=== PATIENT | male | born 1955 | race African-American/Black ===

== ENCOUNTER 2019-07-03 13:34 | Inpatient (IN) | payer MEDICARE ==
--- NOTE | 2019-07-03 19:34 | History and Physical Report ---
History of Present Illness Date of examination: 07/03/19 Date of admission: 07/03/19 15:53 Chief complaint: Shortness of breath - 1 week History of present illness: Patient is a 63 year old male who has a history of pneumonia, admitted at [facility] in 10/2016 presented to my office in company of her daughter complaining of progressive shortness of breath for 2 weeks, weight loss, and right lower extremity pain on ambulation. Shortness of breath is worse on slight exertion. Denies any chest pain no orthopnea or paroxysmal nocturnal dyspnea. He is a current smoker. Smokes 3 cigarettes a day. Denies any fever. No chills. Admits to appreciably increased amount of alcohol ingestion. Patient stated that he has been losing weight for the past 2 years. Lost a total of 50 pounds. Denies any night sweats. No hemoptysis. On admission to my office patient was found to be tachycardic with O2 sat on room air of 88%. Had crackles in the left lower lobe. Had mild to moderate respiratory distress. Direct admission was therefore ordered. Past History Past Medical History: heart failure, hypertension Past Surgical History: No surgical history Social history: smoking, alcohol abuse Family history: other (patient's sister has diabetes) Medications and Allergies Allergies Allergy/AdvReac Type Severity Reaction Status Date / Time No Known Allergies Allergy Unverified 07/03/19 21:23 Active Meds: Active Medications Albuterol/Ipratropium (Duoneb *Not For Prn Use*) 1 ampul IH Q6HRT [facility] Enoxaparin Sodium (Lovenox) 40 mg SUB-Q QDAY@2200 [facility] Levofloxacin/Dextrose (Levaquin 750mg/150ml) 750 mg in 150 mls @ 100 mls/hr IV Q24HR [facility]; Protocol Methylprednisolone Sodium Succinate (Solu-Medrol) 40 mg IV Q8HR [facility] Review of systems Constitutional: Well Nourished and Well developed. Head: NC/ AT Eyes: Denies any visual impairments. No discharge from the eyes Nose: Denies any rhinorrhea or epistaxis Throats: Denies any post nasal drainage. Ears: Denies any hearing deficits Cardiovascular system: Denies any chest pain, shortness of breath, orthopnea, paroxysmal nocturnal dyspnea, or palpitation. Respiratory system: Has shortness of breath. difficulty breathing, wheezing, pleuritic chest pain, Gastrointestinal system: Denies any abdominal pain, nausea vomiting, hematemesis or melena. Neurological system: Denies any headache, slurred speech, facial droop, lateralizing weakness Genitalia system: Denies any dysuria, urinary frequency or urgency, urethral discharge Skin: No rashes, hyperpigmented spots. Hematological: Denies any cervical tenderness hemorrhages or petechia. Immunological: Denies any multiple septic spots, Lymphatic: Denies any generalized lymphadenopathy. Endocrine: Denies any polyuria, polydipsia, polyphagia. No heat or cold intolerance. Musculoskeletal system: No joint pain or swelling. Psych: No visual, tactile, auditory or hallucination Exam - Physical Exam Narrative exam: Constitutional: Poorly nourished, in mild to moderate respiratory distress Head: Normocephalic atraumatic Eyes: Pupils are equal round and reactive to light Nose: No enlarged turbinates, no septal deviation. Mouth: Moist mucous membranes. Neck: Supple no thyromegaly. No bruit. No JVD Heart: Regular rate and rhythm, S1-S2 normal. No rubs murmurs or gallop Lungs: Decreased air movement bilaterally with crackles on the left middle and lower lobes. Has inspiratory wheeze. Abdomen: Soft, nontender. Bowel sound are present. Extremities: No dizziness. No dorsalis pedis pulses felt on both lower extremities. No edema, no cyanosis, no clubbing. Neuro: Alert oriented Oriented x3. No focal sensory or motor deficit. Skin: No rashes or hyperpigmented spots Musculoskeletal system: No joint pain or swelling Hematological: No petechia or subcutanous hemorrhages. Immunological: No multiple septic spots on the skin Lymphatic: No generalized lymphadenopathy Psychiatry: Euthymic. Calm. - Constitutional Vitals: Temp Pulse Resp BP Pulse Ox 97.6 F 105 H 22 181/89 99 07/03/19 19:06 07/03/19 19:03 07/03/19 19:03 07/03/19 19:03 07/03/19 19:03 Results - Labs CBC & Chem 7: 07/03/19 19:41 07/03/19 19:41 Assessment and Plan Patient is a 63 year old male who has a history of pneumonia, admitted at [facility] in 10/2016 presented to my office in company of her daughter complaining of progressive shortness of breath for 2 weeks, weight loss, and right lower extremity pain on ambulation. Shortness of breath is worse on slight exertion. Denies any chest pain no orthopnea or paroxysmal nocturnal dyspnea. He is a current smoker. Smokes 3 cigarettes a day. Denies any fever. No chills. Admits to appreciably increased amount of alcohol ingestion. Patient stated that he has been losing weight for the past 2 years. Lost a total of 50 pounds. Denies any night sweats. No hemoptysis. On admission to my office patient was found to be tachycardic with O2 sat on room air of 88%. Had crackles in the left lower lobe. Had mild to moderate respiratory distress. Direct admission was therefore ordered. - COPD exercebation Broanchodilator, supplemental oxygen, iv solumedrol and iv Levaquin - H/o CHF Obtain BNP, CXR, ECHO, iv lasix, BB, ACEI, Statin - Weight loss CT chest abdomen and pelvis - Pain right leg No palpable pulse right leg Arterial doppler - Thrombocytopenia commence Thiamine, folic acid, - Eosinophelia Unknown etiology, likely pulmonary f/ui with CXR and CT chest - DVT PPx with lovenox and GI with pepcid CODE STATUS: Patient is full code. Time spent: 40 minutes.
[2019-07-03 20:01] LABS: Basophils % (Auto) 0.8 % (0.0-1.8); Eosinophils # (Auto) 0.3 K/mm3 (0.0-0.4); Hematocrit 37.7 % (30.3-42.9); Hemoglobin 12.4 gm/dl (10.1-14.3); Lymphocytes # (Auto) 0.7 K/mm3 (1.2-5.4); Lymphocytes % (Auto) 28.8 % (13.4-35.0); Mean Corpuscular HGB Conc 33 % (30-34); Mean Corpuscular Volume 96 fl (79-97); Monocytes # (Auto) 0.3 K/mm3 (0.0-0.8); Monocytes % (Auto) 10.6 % (0.0-7.3); Platelet Count 108 K/mm3 (140-440); Red Blood Count 3.94 M/mm3 (3.65-5.03); Red Cell Distribution Width 12.7 % (13.2-15.2)
[2019-07-03 20:20] LABS: Alanine Aminotransferase 7 units/L (7-56); Albumin 3.8 g/dL (3.9-5); BUN/Creatinine Ratio 24; Blood Urea Nitrogen 17 mg/dL (7-17); Calcium 8.7 mg/dL (8.4-10.2); Hemolysis Index 14
[2019-07-03] MEDS: DUONEB *Not for PRN Use IH SCH (21:55)
[2019-07-03] MEDS: ZESTRIL PO SCH (21:59)
[2019-07-03] MEDS: COREG PO SCH (21:59)
[2019-07-03] MEDS: LOVENOX SUB-Q SCH (22:00)
[2019-07-03] MEDS: SOLU-Medrol IV SCH (22:00)
[2019-07-03] MEDS: LEVAQUIN 750MG/150ML 750 MG/150 ML BAG IV SCH (22:23)
--- NOTE | 2019-07-03 22:37 | XRay Report ---
CHEST 1 VIEW INDICATION / CLINICAL INFORMATION: sob. COMPARISON: None available. FINDINGS: SUPPORT DEVICES: None. HEART / MEDIASTINUM: Atherosclerotic calcifications are noted in the aortic arch. LUNGS / PLEURA: No significant pulmonary or pleural abnormality.. No pneumothorax. ADDITIONAL FINDINGS: No significant additional findings. IMPRESSION: 1. No acute findings. Signer Name: Robin Hollingsworth MD Signed: 07/03/2019 10:33 PM Workstation Name: [id number]
[2019-07-03 22:42] LABS: ABG Base Excess 12.6 mmol/L (-2.0-3.0); ABG HCO3 38.8 mmol/L (20.0-26.0); ABG Methemoglobin 0.5 % (0.0-1.5); ABG Oxygen Saturation 97.3 % (95.0-99.0); ABG PCO2 63.7 mm Hg; ABG PH 7.402 pH Units (7.350-7.450); ABG PO2 99.6 mm Hg (80.0-90.0)
[2019-07-04] MEDS: DUONEB *Not for PRN Use IH SCH ×4 (02:17→22:37)
[2019-07-04] MEDS: SOLU-Medrol IV SCH ×3 (06:09→21:09)
--- NOTE | 2019-07-04 08:17 | Progress Note ---
Assessment and Plan Patient is a 63 year old male who has a history of pneumonia, admitted at [facility] in 10/2016 presented to my office in company of her daughter complaining of progressive shortness of breath for 2 weeks, weight loss, and right lower extremity pain on ambulation. Shortness of breath is worse on slight exertion. Denies any chest pain no orthopnea or paroxysmal nocturnal dyspnea. He is a current smoker. Smokes 3 cigarettes a day. Denies any fever. No chills. Admits to appreciably increased amount of alcohol ingestion. Jessica ent stated that he has been losing weight for the past 2 years. Lost a total of 50 pounds. Denies any night sweats. No hemoptysis. On admission to my office patient was found to be tachycardic with O2 sat on room air of 88%. Had crackles in the left lower lobe. Had mild to moderate respiratory distress. Direct admission was therefore ordered. - COPD exercebation Chest x-ray remarkable for emphysema, cardiomegaly and mild congestion. Discussed with radiologist. Broanchodilator, supplemental oxygen, iv solumedrol and iv Levaquin - H/o CHF Follow-up with Obtain BNP and ECHO, Chest x-ray showed cardiomegaly. iv lasix, BB, ACEI, Statin - Weight loss CT chest abdomen and pelvis - Pain right leg No palpable pulse right leg Arterial doppler - Thrombocytopenia commence Thiamine, folic acid, - Eosinophelia Unknown etiology, likely pulmonary f/ui with CXR and CT chest - DVT PPx with lovenox and GI with pepcid CODE STATUS: Patient is full code. Time spent: 40 minutes. Subjective Date of service: 07/04/19 Principal diagnosis: COPD exacerbation, shortness of breath, hypoxia, PAD. Interval history: Shortness of breath improving Objective - Exam Narrative Exam: Constitutional: Poorly nourished,in mild to moderate respiratory distress Head: Normocephalic atraumatic Eyes: Pupils are equal round and reactive to light Nose: No enlarged turbinates, no septal deviation. Mouth: Moist mucous membranes. Neck: Supple no thyromegaly. No bruit. No JVD Heart: Regular rate and rhythm, S1-S2 normal. No rubs murmurs or gallop Lungs: Decreased air movement bilaterally with crackles on the left middle and lower lobes. Has inspiratory wheeze. Abdomen: Soft, nontender. Bowel sound are present. Extremities: No dizziness. No dorsalis pedis pulses felt on both lower extremities. No edema, no cyanosis, no clubbing. Neuro: Alert oriented Oriented x3. No focal sensory or motor deficit. Skin: No rashes or hyperpigmented spots Musculoskeletal system: No joint pain or swelling Hematological: No petechia or subcutanous hemorrhages. Immunological: No multiple septic spots on the skin Lymphatic: No generalized lymphadenopathy Psychiatry: Euthymic. Calm. - Constitutional Vitals: Vital Signs - 12hr 07/03/19 07/04/19 07/04/19 22:00 02:18 02:19 Temperature 98.8 F Pulse Rate 88 Pulse Rate [ 90 Bilateral Throughout] Respiratory 20 Rate Respiratory 18 Rate [Bilateral Throughout] Blood Pressure 134/74 O2 Sat by Pulse 95 91 Oximetry 07/04/19 07:52 Temperature 97.7 F Pulse Rate 87 Pulse Rate [ Bilateral Throughout] Respiratory 18 Rate Respiratory Rate [Bilateral Throughout] Blood Pressure 141/76 O2 Sat by Pulse 97 Oximetry - Labs CBC & Chem 7: 07/03/19 19:41 07/03/19 19:41 Labs: Abnormal lab results 07/03/19 07/03/19 07/03/19 Range/Units 19:41 19:41 22:00 WBC 2.6 L (4.5-11.0) K/mm3 RDW 12.7 L (13.2-15.2) % Plt Count 108 L (140-440) K/mm3 [place] % (Auto) 10.6 H (0.0-7.3) % Eos % (Auto) 11.0 H (0.0-4.3) % Lymph # 0.7 L (1.2-5.4) K/mm3 Seg Neutrophils # 1.3 L (1.8-7.7) K/mm3 ABG pO2 99.6 H (80.0-90.0) mm Hg ABG HCO3 38.8 H (20.0-26.0) mmol/L ABG Base Excess 12.6 H (-2.0-3.0) mmol/L ABG Hemoglobin 7.0 L (14.0-18.0) gm/dl Chloride 95.5 L (98-107) mmol/L Carbon Dioxide 36 H (22-30) mmol/L Albumin 3.8 L (3.9-5) g/dL
[2019-07-04 08:37] LABS: Basophils % (Auto) 0.6 % (0.0-1.8); Eosinophils # (Auto) 0.1 K/mm3 (0.0-0.4); Eosinophils % (Auto) 5.4 % (0.0-4.3); Hematocrit 36.8 % (35.5-45.6); Hemoglobin 12.2 gm/dl (11.8-15.2); Lymphocytes # (Auto) 0.4 K/mm3 (1.2-5.4); Lymphocytes % (Auto) 16.9 % (13.4-35.0); Mean Corpuscular HGB Conc 33 % (32-34); Mean Corpuscular Volume 96 fl (84-94); Monocytes # (Auto) 0.1 K/mm3 (0.0-0.8); Platelet Count 104 K/mm3 (140-440); Red Blood Count 3.84 M/mm3 (3.65-5.03); Red Cell Distribution Width 12.8 % (13.2-15.2)
[2019-07-04 08:55] LABS: BUN/Creatinine Ratio 23; Blood Urea Nitrogen 18 mg/dL (9-20); Calcium 8.9 mg/dL (8.4-10.2); Hemolysis Index 6
--- NOTE | 2019-07-04 11:52 | Consultation ---
History of Present Illness Consult date: 07/04/19 Requesting physician: CHRIS HAWKINS Consult reason: congestive heart failure History of present illness: The patient is a 63 year old male with a past medical history of HTN, pneumonia and tobacco use. He is previously unknown to our practice. Pt presented to his PCP's (Dr. Hawkins) office yesterday in company of his daughter with c/o progressive shortness of breath for 2 weeks, weight loss, and right lower extremity pain on ambulation. Shortness of breath is worse on slight exertion. Pt denies any chest pain, orthopnea, paroxysmal nocturnal dyspnea, palpitations, n/v, diaphoresis, dizziness or syncope. Admits to appreciably increased amount of alcohol ingestion. Patient stated that he has been losing weight for the past 2 years. Lost a total of 50 pounds. Denies any night sweats. No hemoptysis. On admission PCP's office patient was found to be tachycardic with O2 sat on room air of 88% with crackles in the left lower lobe and mild to moderate respiratory distress and thus pt was directly admitted to [facility] for further eval/management. Pt underwent echo which showed EF 20-25%, LV mildly dilated, mild LVH, impaired relaxation, LA mildly dilated, mod AR and mild MR and thus cardiology has been consulted. On evaluation, pt appears comfortable, no current complaints. Pt's daughter denies any known pt history of cardiac issues, including CAD, AMI or HF. Past History Past Medical History: hypertension Past Surgical History: No surgical history Social history: smoking, alcohol abuse Family history: other (patient's sister has diabetes) Medications and Allergies Allergies Allergy/AdvReac Type Severity Reaction Status Date / Time No Known Allergies Allergy Unverified 07/03/19 21:23 Home Medications Medication Instructions Recorded Confirmed Last Taken Type No Known Home Medications [No 07/04/19 07/04/19 Unknown History Reported Home Medications] Active Meds: Active Medications Albuterol/Ipratropium (Duoneb *Not For Prn Use*) 1 ampul IH Q6HRT [facility] Last Admin: 07/04/19 08:45 Dose: 1 ampul Documented by: Atorvastatin Calcium (Lipitor) 40 mg PO QHS [facility] Last Admin: 07/03/19 21:59 Dose: 40 mg Documented by: Carvedilol (Coreg) 6.25 mg PO BID [facility] Last Admin: 07/03/19 21:59 Dose: 6.25 mg Documented by: Enoxaparin Sodium (Lovenox) 40 mg SUB-Q QDAY@2200 [facility] Last Admin: 07/03/19 22:00 Dose: 40 mg Documented by: Famotidine (Pepcid) 20 mg IV QDAY [facility] Furosemide (Lasix) 40 mg IV QDAY [facility] Levofloxacin/Dextrose (Levaquin 750mg/150ml) 750 mg in 150 mls @ 100 mls/hr IV Q24HR [facility]; Protocol Last Infusion: 07/04/19 03:31 Dose: Infused Documented by: Sodium Chloride (Nacl 0.9% 500 Ml) 500 mls @ 50 mls/hr IV DIRECT [facility] Stop: 07/04/19 21:59 Lisinopril (Zestril) 40 mg PO BID [facility] Last Admin: 07/03/19 21:59 Dose: 40 mg Documented by: Methylprednisolone Sodium Succinate (Solu-Medrol) 40 mg IV Q8HR [facility] Last Admin: 07/04/19 06:09 Dose: 40 mg Documented by: Review of Systems Constitutional: weight loss, no weight gain, no fever, no chills, no sweats Ears, nose, mouth and throat: no ear pain, no nose pain, no sinus pressure, no sinus pain Cardiovascular: shortness of breath, dyspnea on exertion, no chest pain, no orthopnea, no palpitations, no rapid/irregular heart beat, no edema, no syncope, no lightheadedness, no high blood pressure, no leg edema Respiratory: shortness of breath, dyspnea on exertion, no cough, no congestion, no wheezing, no pain on inspiration Gastrointestinal: no abdominal pain, no nausea, no vomiting, no diarrhea, no constipation, no change in bowel habits Genitourinary Male: no dysuria, no hematuria, no flank pain, no discharge, no urinary frequency, no urinary hesitancy Integumentary: no rash, no pruritis, no redness, no sores, no wounds Neurological: no head injury, no paralysis, no weakness, no parathesias, no numbness, no tingling, no seizures, no syncope Psychiatric: no anxiety Endocrine: no cold intolerance, no heat intolerance Hematologic/Lymphatic: no easy bruising, no easy bleeding Allergic/Immunologic: no urticaria, no wheezing Physical Examination Vital Signs Temp 98.1 F 07/03/19 18:06 General appearance: no acute distress HEENT: Positive: PERRL, Normocephaly, Mucus Membranes Moist Neck: Positive: neck supple, trachea midline Cardiac: Positive: Reg Rate and Rhythm, S1/S2 Lungs: Positive: Decreased Breath Sounds Abdomen: Negative: Tender Skin: Negative: Rash, Wound Musculoskeletal: No Pain Extremities: Absent: edema Results 07/04/19 08:00 07/04/19 08:00 Cardiac Enzymes 07/03/19 Range/Units 19:41 AST 21 (5-40) units/L CBC 07/03/19 07/04/19 Range/Units 19:41 08:00 WBC 2.6 L 2.5 L (4.5-11.0) K/mm3 RBC 3.94 3.84 (3.65-5.03) M/mm3 Hgb 12.4 12.2 (10.1-14.3) gm/dl Hct 37.7 36.8 (30.3-42.9) % Plt Count 108 L 104 L (140-440) K/mm3 Lymph # 0.7 L 0.4 L (1.2-5.4) K/mm3 [place] # 0.3 0.1 (0.0-0.8) K/mm3 Eos # 0.3 0.1 (0.0-0.4) K/mm3 Baso # 0.0 0.0 (0.0-0.1) K/mm3 Comprehensive Metabolic Panel 07/03/19 07/04/19 Range/Units 19:41 08:00 Sodium 141 142 (137-145) mmol/L Potassium 3.9 3.9 (3.6-5.0) mmol/L Chloride 95.5 L 95.8 L (98-107) mmol/L Carbon Dioxide 36 H 38 H (22-30) mmol/L BUN 17 18 (7-17) mg/dL Creatinine 0.7 0.8 (0.7-1.2) mg/dL Glucose 76 106 H (65-100) mg/dL Calcium 8.7 8.9 (8.4-10.2) mg/dL AST 21 (5-40) units/L ALT 7 (7-56) units/L Alkaline Phosphatase 36 (35-129) units/L Total Protein 7.6 (6.3-8.2) g/dL Albumin 3.8 L (3.9-5) g/dL - Imaging and Cardiology Echo: report reviewed (EF 20-25%, LV mildly dilated, mild LVH, impaired relaxation, LA mildly dilated, mod AR and mild MR ) EKG: report reviewed, image reviewed EKG interpretations - Telemetry EKG Rhythm: Sinus Rhythm - EKG Sinus rhythms and dysrhythmias: sinus rhythm Chamber hypertrophy or enlargement: left ventricular hypertro Assessment and Plan Agree with present cardiac management. Pt appears to be nearing/at euvolemia. Coronary angiography recommended in setting of newly diagnosed CMP. Indications, potential risks and benefits of LHC reviewed with pt and pt's daughter at bedside and they are agreeable to proceed with LHC in AM. NPO after MN. The patient has been seen in conjunction with Dr. Quin Montoya who agrees with the assessment and plan of care. - Patient Problems (1) Acute HFrEF (heart failure with reduced ejection fraction) Current Visit: Yes Status: Acute (2) Cardiomyopathy Current Visit: Yes Status: Chronic (3) COPD exacerbation Current Visit: Yes Status: Suspected (4) Tobacco use Current Visit: Yes Status: Chronic (5) Alcohol use Current Visit: Yes Status: Chronic (6) Acute pain of right lower extremity Current Visit: Yes Status: Acute
[2019-07-04] MEDS ORDERED: NACL 0.9% 500 ML 500 ML IV SCH (12:00)
--- NOTE | 2019-07-04 12:18 | Vascular Lab Report ---
DUPLEX DOPPLER LOWER EXTREMITY ARTERIAL, BILATERAL INDICATION: Claudication. TECHNIQUE: Arterial duplex examination of both lower extremities performed using B-mode, color flow and spectral Doppler assessment. FINDINGS: RIGHT: Common Femoral Artery: PSV 257 cm/sec. Triphasic waveform. Moderate to severe calcified irregular pl aques are identified. Proximal SFA: PSV 33 cm/sec. Biphasic waveform. Mid SFA: PSV 46 cm/sec. Biphasic waveform. Distal SFA: PSV 42 cm/sec. Triphasic waveform. Popliteal artery: PSV 124 cm/sec. Monophasic waveform. Moderate to severe calcified irregular plaque s are identified. Posterior tibial artery: PSV 26 cm/sec. Monophasic waveform. Anterior tibial artery: PSV 13 cm/sec. Monophasic waveform. LEFT: Common Femoral Artery: PSV 95 cm/sec. Biphasic waveform. Moderate calcified irregular plaques are id entified. Proximal SFA: PSV 65 cm/sec. Biphasic waveform. Mid SFA: PSV 126 cm/sec. Biphasic waveform. Distal SFA: PSV 53 cm/sec. Biphasic waveform. Popliteal artery: PSV 231 cm/sec. Biphasic waveform. Moderate to severe calcified irregular plaques are identified. Posterior tibial artery: PSV 33 cm/sec. Biphasic waveform. Dorsalis Pedis Artery: PSV 10 cm/sec. Monophasic waveform. IMPRESSION: Moderate to severe atherosclerotic disease is identified in both lower extremities which is most pron ounced in the right common femoral artery and left popliteal artery. By velocity ratios, there is less than 50% stenosis in the right common femoral artery, greater than 50% stenosis in the right popliteal artery and greater than 75% stenosis in the left popliteal artery . Doppler Waveform: * Triphasic is normal. * Biphasic is abnormal if clear transition from triphasic signal along vascular tree. * Monophasic is abnormal. Signer Name: Bertram Min Jr, MD Signed: 07/04/2019 12:13 PM Workstation Name: [id number]
[2019-07-04] MEDS: LASIX IV SCH (12:59)
[2019-07-04] MEDS: LEVAQUIN 750MG/150ML 750 MG/150 ML BAG IV SCH (13:00)
[2019-07-04] MEDS: COREG PO SCH ×2 (13:06→21:09)
[2019-07-04] MEDS: ZESTRIL PO SCH ×2 (13:07→21:09)
[2019-07-04] MEDS: PEPCID IV SCH (13:10)
--- NOTE | 2019-07-04 17:02 | Cat Scan Report ---
CT CHEST, ABDOMEN, AND PELVIS WITH IV CONTRAST INDICATION: Shortness of breath. Weight loss. TECHNIQUE: Axial CT images were obtained through the chest, abdomen, and pelvis after 100 mL Omnipaque 300 IV co ntrast. Oral contrast was also administered. All CT scans at this location are performed using CT dos e reduction for ALARA by means of automated exposure control. COMPARISON: One view of the chest from 07/03/2019. FINDINGS: Motion artifact limits evaluation of the abdomen. MEDIASTINUM: No significant abnormality of the thyroid gland. The trachea and main bronchi are patent and normal in caliber. No mass or lymphadenopathy is seen. The heart is mildly to moderately enlarge d without a significant pericardial effusion. THORACIC AORTA and ARTERIES: The aorta is patent with moderate generalized atherosclerosis. The ascen ding thoracic aorta is mildly dilated and measures 4.0 x 3.9 cm. No dissection is seen. The great ves sels are patent and moderately calcified. There is dense multivessel coronary atherosclerosis. LUNGS: Atelectasis/scarring is seen along the left lower lobe. The lungs are otherwise clear. No sign ificant pleural effusion or pneumothorax. LIVER: No significant abnormality. BILIARY:No significant abnormality. PANCREAS: No significant abnormality. SPLEEN: No significant abnormality. ADRENALS: No significant abnormality. KIDNEYS AND URETERS:No significant abnormality. GI TRACT:No significant abnormality of the stomach, small bowel or colon. Unremarkable appendix. PERITONEUM: No free fluid. No free air. No fluid collection. LYMPH NODES: No significant adenopathy. ABDOMINAL AORTA and ARTERIES: Severe generalized atherosclerosis is noted. An infrarenal abdominal ao rtic aneurysm measures 4.8 x 4.3 cm in axial dimensions on image 28 of series 7 with a length of 6 cm . No associated acute complication is identified. No dissection is seen. URINARY BLADDER: No significant abnormality. REPRODUCTIVE ORGANS: No significant abnormality. ADDITIONAL FINDINGS: None. SKELETAL SYSTEM: There is osteopenia with degenerative changes throughout the spine. No acute abnorma lity is seen. IMPRESSION: 1. No acute abnormality of the abdomen or pelvis. 2. Aneurysms of the thoracic and abdominal aorta as above without associated acute complications. 3. Additional findings as above. Signer Name: Fred Platt MD Signed: 07/04/2019 4:57 PM Workstation Name: [id number]
[2019-07-04] MEDS ORDERED: ATIVAN IV PRN (19:06)
[2019-07-04] MEDS: LOVENOX SUB-Q SCH (21:09)
[2019-07-05] MEDS: DUONEB *Not for PRN Use IH SCH ×4 (02:27→21:02)
[2019-07-05 04:09] LABS: Basophils % (Auto) 0.1 % (0.0-1.8); Eosinophils % (Auto) 0.1 % (0.0-4.3); Hematocrit 40.7 % (35.5-45.6); Hemoglobin 13.6 gm/dl (11.8-15.2); Lymphocytes # (Auto) 0.4 K/mm3 (1.2-5.4); Mean Corpuscular HGB Conc 33 % (32-34); Mean Corpuscular Volume 96 fl (84-94); Monocytes # (Auto) 0.1 K/mm3 (0.0-0.8); Monocytes % (Auto) 5.7 % (0.0-7.3); Platelet Count 130 K/mm3 (140-440); Red Blood Count 4.24 M/mm3 (3.65-5.03); Red Cell Distribution Width 13.1 % (13.2-15.2)
[2019-07-05 04:21] LABS: INR 0.98 (0.87-1.13)
[2019-07-05 04:26] LABS: Alanine Aminotransferase 9 units/L (7-56); Albumin 4.3 g/dL (3.9-5); BUN/Creatinine Ratio 20; Blood Urea Nitrogen 24 mg/dL (9-20); Calcium 9.6 mg/dL (8.4-10.2); Hemolysis Index 11
[2019-07-05] MEDS: SOLU-Medrol IV SCH ×3 (05:49→21:55)
[2019-07-05] MEDS ORDERED: NACL 0.9% 500 ML 500 ML ONE (07:12)
[2019-07-05] MEDS ORDERED: ASPIRIN ONE (07:13)
[2019-07-05 07:36] LABS: INR 0.93 (0.87-1.13)
[2019-07-05 07:37] LABS: Partial Thromboplastin Time 31.4 Sec. (24.2-36.6)
[2019-07-05] MEDS: ASPIRIN PO SCH ×2 (07:47→10:56)
--- NOTE | 2019-07-05 09:43 | Progress Note ---
Assessment and Plan Patient is a 63 year old male who has a history of pneumonia, admitted at [facility] in 10/2016 presented to my office in company of her daughter complaining of progressive shortness of breath for 2 weeks, weight loss, and right lower extremity pain on ambulation. Shortness of breath is worse on slight exertion. Denies any chest pain no orthopnea or paroxysmal nocturnal dyspnea. He is a current smoker. Smokes 3 cigarettes a day. Denies any fever. No chills. Admits to appreciably increased amount of alcohol ingestion. Jessica ent stated that he has been losing weight for the past 2 years. Lost a total of 50 pounds. Denies any night sweats. No hemoptysis. On admission to my office patient was found to be tachycardic with O2 sat on room air of 88%. Had crackles in the left lower lobe. Had mild to moderate respiratory distress. Direct admission was therefore ordered. - Acute on chronic combined systolic and diastolic heart failure LVEF 20-25% BNP 3787 Chest x-ray showed cardiomegaly. Conitnue with iv lasix, BB, ACEI, Statin - Acute metabolic encephalopahty Likely ETOH with drawal Get ETOH level Likely ETOH withdrawal commence CIWA protocol with ativan - COPD exercebation with hypercapnea Chest x-ray remarkable for emphysema, cardiomegaly and mild congestion. Continue with Broanchodilator, supplemental oxygen, iv solumedrol and iv Levaquin Brovena Pulm. consult - Ascending Aorta aneurysm 4x3.9 cm Vascular surgical consult - PAD with no palpable DP pulse zhen and h/o Claudication Arterial doppler showed sever occlusive disease especially left Pop art. Vascular surgical consult obtained - Weight loss CT chest abdomen and pelvis - Thrombocytopenia - imporving commence Thiamine, folic acid, - Eosinophelia Unknown etiology, likely pulmonary f/u with CXR and CT chest - DVT PPx with lovenox and GI with pepcid CODE STATUS: Patient is full code. Time spent: 40 minutes. Subjective Date of service: 07/05/19 Principal diagnosis: COPD exacerbation, shortness of breath, hypoxia, PAD. Interval history: Very confused. Said to have attemptyed leaving the hospital yesterday Objective - Exam Narrative Exam: Constitutional: Poorly nourished, Very confused and agitated Head: Normocephalic atraumatic Eyes: Pupils are equal round and reactive to light Nose: No enlarged turbinates, no septal deviation. Mouth: Moist mucous membranes. Neck: Supple no thyromegaly. No bruit. No JVD Heart: Regular rate and rhythm, S1-S2 normal. No rubs murmurs or gallop Lungs: Decreased air movement bilaterally with crackles on the left middle and lower lobes. Has inspiratory wheeze. Abdomen: Soft, nontender. Bowel sound are present. Extremities: No dizziness. No dorsalis pedis pulses felt on both lower extremities. No edema, no cyanosis, no clubbing. Neuro: Alert oriented Oriented x3. No focal sensory or motor deficit. Skin: No rashes or hyperpigmented spots Musculoskeletal system: No joint pain or swelling Hematological: No petechia or subcutanous hemorrhages. Immunological: No multiple septic spots on the skin Lymphatic: No generalized lymphadenopathy Psychiatry: Confused and agitated - Constitutional Vitals: Vital Signs - 12hr 07/04/19 07/04/19 07/05/19 22:00 22:41 02:50 Temperature 98.0 F Pulse Rate 104 H Pulse Rate [ 93 H Bilateral Throughout] Pulse Rate [ 98 H Right Brachial] Respiratory 18 18 Rate Respiratory 18 Rate [Bilateral Throughout] Blood Pressure 145/85 O2 Sat by Pulse 98 100 Oximetry - Labs CBC & Chem 7: 07/05/19 03:23 07/05/19 03:23 Labs: Abnormal lab results 07/05/19 07/05/19 07/05/19 Range/Units 01:51 03:23 03:23 WBC 2.5 L (4.5-11.0) K/mm3 MCV 96 H (84-94) fl RDW 13.1 L (13.2-15.2) % Plt Count 130 L (140-440) K/mm3 Lymph # 0.4 L (1.2-5.4) K/mm3 Seg Neutrophils % 79.1 H (40.0-70.0) % Chloride 96.1 L (98-107) mmol/L Carbon Dioxide 36 H (22-30) mmol/L BUN 24 H (9-20) mg/dL Glucose 138 H (75-100) mg/dL POC Glucose 143 H (70-105) Total Protein 8.5 H (6.3-8.2) g/dL 07/05/19 Range/Units 09:24 WBC (4.5-11.0) K/mm3 MCV (84-94) fl RDW (13.2-15.2) % Plt Count (140-440) K/mm3 Lymph # (1.2-5.4) K/mm3 Seg Neutrophils % (40.0-70.0) % Chloride (98-107) mmol/L Carbon Dioxide (22-30) mmol/L BUN (9-20) mg/dL Glucose (75-100) mg/dL POC Glucose 126 H (70-105) Total Protein (6.3-8.2) g/dL
--- NOTE | 2019-07-05 10:00 | Progress Note ---
Assessment and Plan Pt was brought down for [facility], noted to have altered mental status, confused. Will cancel LHC at this time and recommend neurology consultation per primary. D/w Dr. Cohen. Will tentatively plan for C tomorrow pending AMS is improved. NPO after MN. Chest CT reviewed - pt with aneurysms of the thoracic and abdominal aorta. BLE arterial duplex noted - pt with mod to severe disease in BLE. Vascular team has been consulted. Agree with present cardiac management. Pt appears to be nearing/at euvolemia. The patient has been seen in conjunction with Dr. Quin Montoya who agrees with the assessment and plan of care. - Patient Problems (1) Acute HFrEF (heart failure with reduced ejection fraction) Current Visit: Yes Status: Acute (2) Cardiomyopathy Current Visit: Yes Status: Chronic (3) COPD exacerbation Current Visit: Yes Status: Suspected (4) Tobacco use Current Visit: Yes Status: Chronic (5) Alcohol use Current Visit: Yes Status: Chronic (6) Acute pain of right lower extremity Current Visit: Yes Status: Acute Subjective Date of service: 07/05/19 Principal diagnosis: COPD exacerbation, shortness of breath, hypoxia, PAD. Interval history: pt was brought down for [facility], noted to have altered mental status, confused. daughter at bedside. Objective Last Vital Signs Temp 98.0 F 07/05/19 02:50 Pulse 104 H 07/05/19 02:50 Resp 18 07/05/19 02:50 BP 145/85 07/05/19 02:50 Pulse Ox 100 07/05/19 02:50 - Physical Examination General: Other (confused) HEENT: Positive: PERRL, Normocephaly, Mucus Membranes Moist Neck: Positive: neck supple, trachea midline Cardiac: Positive: Regular Rhythm, S1/S2 Lungs: Positive: Decreased Breath Sounds Neuro: Positive: Other (confused) Abdomen: Negative: Tender Skin: Negative: Rash, Wound Musculoskeletal: No Pain Extremities: Absent: edema - Labs and Meds Cardiac Enzymes 07/05/19 Range/Units 03:23 AST 23 (5-40) units/L Coagulation 07/05/19 07/05/19 Range/Units 03:23 07:09 PT 12.7 12.2 (12.2-14.9) Sec. INR 0.98 0.93 (0.87-1.13) APTT 31.4 (24.2-36.6) Sec. CBC 07/05/19 Range/Units 03:23 WBC 2.5 L (4.5-11.0) K/mm3 RBC 4.24 (3.65-5.03) M/mm3 Hgb 13.6 (11.8-15.2) gm/dl Hct 40.7 (35.5-45.6) % Plt Count 130 L (140-440) K/mm3 Lymph # 0.4 L (1.2-5.4) K/mm3 Floyd # 0.1 (0.0-0.8) K/mm3 Eos # 0.0 (0.0-0.4) K/mm3 Baso # 0.0 (0.0-0.1) K/mm3 Comprehensive Metabolic Panel 07/05/19 Range/Units 03:23 Sodium 142 (137-145) mmol/L Potassium 4.5 (3.6-5.0) mmol/L Chloride 96.1 L (98-107) mmol/L Carbon Dioxide 36 H (22-30) mmol/L BUN 24 H (9-20) mg/dL Creatinine 1.2 (0.8-1.5) mg/dL Glucose 138 H (75-100) mg/dL Calcium 9.6 (8.4-10.2) mg/dL AST 23 (5-40) units/L ALT 9 (7-56) units/L Alkaline Phosphatase 36 (35-129) units/L Total Protein 8.5 H (6.3-8.2) g/dL Albumin 4.3 (3.9-5) g/dL - Imaging and Cardiology EKG: report reviewed, image reviewed Echo: report reviewed (EF 20-25%, LV mildly dilated, mild LVH, impaired relaxation, LA mildly dilated, mod AR and mild MR ) - Telemetry EKG Rhythm: Sinus Rhythm - EKG Sinus rhythms and dysrhythmias: sinus rhythm Chamber hypertrophy or enlargement: left ventricular hypertro
[2019-07-05] MEDS: LEVAQUIN 750MG/150ML 750 MG/150 ML BAG IV SCH (10:54)
[2019-07-05] MEDS: LASIX IV SCH (10:55)
[2019-07-05] MEDS: ZESTRIL PO SCH ×2 (10:56→21:54)
[2019-07-05] MEDS: COREG PO SCH ×2 (10:56→21:54)
[2019-07-05] MEDS: PEPCID IV SCH (10:56)
--- NOTE | 2019-07-05 12:03 | Consultation ---
History of Present Illness - Reason for Consult Consult date: 07/05/19 AAA and PAD - History of Present Illness HPI: 63yo male with hx of CHF and HTN currently hospitalized with complaints of worsening SOB on exertion and right leg pain with ambulation. The patient's right leg pain has worsened over the past 2-3 months. The patient has also noticed approx. 50lb weight loss over the past 2 years for poor appetite. The patient's leg pain resolves with rest and denies rest pain. Patient with incidental finding of approx 4.8cm AAA seen on CT scan. Patient history mainly obtained from his daughters due to falling in and out of sleep. Patient has smoked < 1/2ppd of cigarettes for over 30 years and drinks frequently. PE: arousable, NAD emaciated RRR non-labored respirations abd soft, nt, nd, palpable pulsatile mass 1+ femoral pulses bilat both feet warm with no lesions Vitals reviewed arterial duplex CT chest/abd/pelvis reviewed Echo reviewed EF 20-25% Plan: patient with 4.8cm Infra-renal AAA and worsening bilateral lower extremity claudication patient with significant co-morbidities, including likely CAD and severe malnutrition patient scheduled to undergo LHC by Cardiology once AMS improves will obtain ABIs with exercise if possible and CTA of the abd/pelvis with runoff no immediate need for intervention at this time will continue to follow Past History Past Medical History: hypertension Past Surgical History: No surgical history Social history: smoking, alcohol abuse Family history: other (patient's sister has diabetes) Medications and Allergies Allergies Allergy/AdvReac Type Severity Reaction Status Date / Time No Known Allergies Allergy Unverified 07/03/19 21:23 Home Medications Medication Instructions Recorded Confirmed Last Taken Type No Known Home Medications [No 07/04/19 07/04/19 Unknown History Reported Home Medications] Active Meds: Active Medications Albuterol/Ipratropium (Duoneb *Not For Prn Use*) 1 ampul IH Q6HRT [facility] Last Admin: 07/05/19 10:32 Dose: 1 ampul Documented by: Aspirin (Aspirin) 325 mg PO QDAY [facility] Last Admin: 07/05/19 10:56 Dose: Not Given Documented by: Atorvastatin Calcium (Lipitor) 40 mg PO QHS [facility] Last Admin: 07/04/19 21:09 Dose: 40 mg Documented by: Carvedilol (Coreg) 6.25 mg PO BID [facility] Last Admin: 07/05/19 10:56 Dose: 6.25 mg Documented by: Enoxaparin Sodium (Lovenox) 40 mg SUB-Q QDAY@2200 [facility] Last Admin: 07/04/19 21:09 Dose: 40 mg Documented by: Famotidine (Pepcid) 20 mg IV QDAY [facility] Last Admin: 07/05/19 10:56 Dose: 20 mg Documented by: Furosemide (Lasix) 40 mg IV QDAY [facility] Last Admin: 07/05/19 10:55 Dose: 40 mg Documented by: Levofloxacin/Dextrose (Levaquin 750mg/150ml) 750 mg in 150 mls @ 100 mls/hr IV Q24HR [facility]; Protocol Last Admin: 07/05/19 10:54 Dose: 100 mls/hr Documented by: Lisinopril (Zestril) 40 mg PO BID [facility] Last Admin: 07/05/19 10:56 Dose: 40 mg Documented by: Lorazepam (Ativan) 1 mg IV Q12H PRN PRN Reason: Agitation Last Admin: 07/05/19 00:55 Dose: 1 mg Documented by: Methylprednisolone Sodium Succinate (Solu-Medrol) 40 mg IV Q8HR [facility] Last Admin: 07/05/19 05:49 Dose: 40 mg Documented by: Exam - Constitutional Vitals: Temp Pulse Resp BP Pulse Ox 98.0 F 98 H 16 145/85 95 07/05/19 02:50 07/05/19 10:25 07/05/19 10:25 07/05/19 02:50 07/05/19 10:30 Results - Labs CBC & Chem 7: 07/05/19 03:23 07/05/19 03:23 Labs: Abnormal lab results 07/05/19 07/05/19 07/05/19 Range/Units 01:51 03:23 03:23 WBC 2.5 L (4.5-11.0) K/mm3 MCV 96 H (84-94) fl RDW 13.1 L (13.2-15.2) % Plt Count 130 L (140-440) K/mm3 Lymph # 0.4 L (1.2-5.4) K/mm3 Seg Neutrophils % 79.1 H (40.0-70.0) % Chloride 96.1 L (98-107) mmol/L Carbon Dioxide 36 H (22-30) mmol/L BUN 24 H (9-20) mg/dL Glucose 138 H (75-100) mg/dL POC Glucose 143 H (70-105) Magnesium (1.7-2.3) mg/dL Total Protein 8.5 H (6.3-8.2) g/dL 07/05/19 07/05/19 Range/Units 04:07 09:24 WBC (4.5-11.0) K/mm3 MCV (84-94) fl RDW (13.2-15.2) % Plt Count (140-440) K/mm3 Lymph # (1.2-5.4) K/mm3 Seg Neutrophils % (40.0-70.0) % Chloride (98-107) mmol/L Carbon Dioxide (22-30) mmol/L BUN (9-20) mg/dL Glucose (75-100) mg/dL POC Glucose 126 H (70-105) Magnesium 1.60 L (1.7-2.3) mg/dL Total Protein (6.3-8.2) g/dL
[2019-07-05] MEDS ORDERED: ATIVAN IV PRN ×3 (13:49)
--- NOTE | 2019-07-05 17:16 | Cat Scan Report ---
CTA ABDOMEN, PELVIS, AND LOWER EXTREMITIES INDICATION: AAA with lower extremity arterial insufficiency. TECHNIQUE: Axial CT images were obtained through the abdomen, pelvis and lower extremities after injection of 10 0 mL Omnipaque 350 IV contrast. 3 plane MIP reconstructions were produced. All CT scans at this [facility] are performed using CT dose reduction for ALARA by means of automated exposure control. COMPARISON: CT abdomen and pelvis with contrast from 07/04/2019. Bilateral lower extremity arterial Doppler from . FINDINGS: CTA ABDOMEN: Abdominal Aorta: Patent with diffuse calcified and noncalcified plaques. The recently described infra renal abdominal aortic aneurysm is unchanged in size and appearance. No dissection or other acute abn ormality is seen. Celiac Artery: No significant abnormality. Superior Mesenteric Artery: Moderate nonobstructive atherosclerosis is noted proximally along the SMA , which is patent and otherwise unremarkable. Right Renal Artery: There is mild to moderate nonobstructive atherosclerosis at the origin of a paten t right renal artery. Left Renal Artery: The left renal artery is patent with moderate nonobstructive atherosclerosis at th e origin. The left renal vein is preaortic. Inferior Mesenteric Artery: No significant abnormality. CTA PELVIS: RIGHT: - Common Iliac Artery: Patent with diffuse nonobstructive atherosclerosis. - Internal Iliac Artery: Patent with mild generalized nonobstructive atherosclerosis. - External Iliac Artery: No significant abnormality. LEFT: - Common Iliac Artery: Patent with diffuse nonobstructive atherosclerosis. - Internal Iliac Artery: Patent with mild generalized nonobstructive atherosclerosis. - External Iliac Artery: No significant abnormality. CTA LOWER EXTREMITIES: RIGHT LOWER EXTREMITY: - Common Femoral Artery: Patent with dense nonobstructive atherosclerosis resulting in 60-70% stenosi s by diameter. - Superficial Femoral Artery: Patent with moderate generalized nonobstructive atherosclerosis. - Profunda Femoral Artery: No significant abnormality. - Popliteal Artery: Patent with near total occlusion proximally due to calcified plaques. Moderate no nobstructive atherosclerosis is seen distally. - Anterior Tibial Artery: Patent at its origin with moderate to severe stenosis proximally and subseq uent occlusion without distal reconstitution of flow. A patent dorsalis pedis artery is not visualize d. - Tibioperoneal Trunk: Patent with moderate nonobstructive atherosclerosis. - Posterior Tibial Artery: No significant abnormality. - Peroneal Artery: Patent with mild nonobstructive atherosclerosis proximally. - Ankle runoff: 2 vessel. LEFT LOWER EXTREMITY: - Common Femoral Artery: Patent with diffuse atherosclerosis resulting in 50-60% stenosis by diameter . - Superficial Femoral Artery: Patent with moderate atherosclerosis along the distal half of the vesse l, resulting in mild to moderate obstruction. - Profunda Femoral Artery: No significant abnormality. - Popliteal Artery: Patent with mild nonobstructive atherosclerosis. - Anterior Tibial Artery: Occluded at its origin without distal reconstitution of flow. A patent dors jacob pedis artery is not seen. - Tibioperoneal Trunk: Patent with mild nonobstructive atherosclerosis. - Posterior Tibial Artery: No significant abnormality. - Peroneal Artery: Patent at its origin with mild generalized atherosclerosis and diminutive caliber. The vessel appears patent to the foot. - Ankle runoff: 2 vessel. NONTARGET STRUCTURES: LOWER CHEST: There is a trace left pleural effusion with associated atelectasis. ABDOMEN/PELVIS: No significant abnormality. LOWER EXTREMITIES:No significant abnormality. SKELETAL: No acute abnormality. Osteopenia/osteoporosis is seen with degenerative changes of the spin e and pelvis. ADDITIONAL FINDINGS: None. IMPRESSION: 1. Stable infrarenal abdominal aortic aneurysm without an acute complication. 2. Near total occlusion of the proximal right popliteal artery, occlusion of the right anterior tibia l artery. Two-vessel runoff to the right foot. 3. Mild to moderate obstruction of the distal left SFA with occlusion of the left anterior tibial art aisha. Two-vessel runoff to the left foot. 4. Additional findings as above. Signer Name: Fred Platt MD Signed: 07/05/2019 5:12 PM Workstation Name: [id number]
[2019-07-05] MEDS: LOVENOX SUB-Q SCH (21:54)
[2019-07-06] MEDS: DUONEB *Not for PRN Use IH SCH ×4 (04:58→20:45)
[2019-07-06] MEDS: ASPIRIN PO SCH (05:11)
[2019-07-06] MEDS: COREG PO SCH ×3 (05:11→21:37)
[2019-07-06] MEDS: SOLU-Medrol IV SCH ×3 (05:11→21:36)
[2019-07-06] MEDS: ZESTRIL PO SCH ×3 (05:12→21:53)
[2019-07-06] MEDS: NACL 0.9% 1000 ML 1,000 ML IV SCH (05:30)
[2019-07-06 06:18] LABS: Basophils % (Auto) 0.2 % (0.0-1.8); Eosinophils % (Auto) 0.1 % (0.0-4.3); Hematocrit 38.9 % (35.5-45.6); Lymphocytes # (Auto) 0.6 K/mm3 (1.2-5.4); Lymphocytes % (Auto) 10.2 % (13.4-35.0); Mean Corpuscular HGB Conc 33 % (32-34); Mean Corpuscular Volume 95 fl (84-94); Monocytes # (Auto) 0.3 K/mm3 (0.0-0.8); Monocytes % (Auto) 4.7 % (0.0-7.3); Platelet Count 142 K/mm3 (140-440); Red Cell Distribution Width 12.9 % (13.2-15.2)
[2019-07-06 06:26] LABS: INR 0.91 (0.87-1.13)
[2019-07-06 06:53] LABS: Albumin 3.8 g/dL (3.9-5); Calcium 9.2 mg/dL (8.4-10.2)
[2019-07-06] MEDS ORDERED: NACL 0.9% 500 ML 500 ML ONE (08:12)
--- NOTE | 2019-07-06 08:34 | Progress Note ---
Assessment and Plan Patient is a 63 year old male who has a history of pneumonia, admitted at [facility] in 10/2016 presented to my office in company of her daughter complaining of progressive shortness of breath for 2 weeks, weight loss, and right lower extremity pain on ambulation. Shortness of breath is worse on slight exertion. Denies any chest pain no orthopnea or paroxysmal nocturnal dyspnea. He is a current smoker. Smokes 3 cigarettes a day. Denies any fever. No chills. Admits to appreciably increased amount of alcohol ingestion. Jessica ent stated that he has been losing weight for the past 2 years. Lost a total of 50 pounds. Denies any night sweats. No hemoptysis. On admission to my office patient was found to be tachycardic with O2 sat on room air of 88%. Had crackles in the left lower lobe. Had mild to moderate respiratory distress. Direct admission was therefore ordered. CTA of abdomen 1. No acute abnormality of the abdomen or pelvis. 2. Aneurysms of the thoracic and abdominal aorta as above without associated acute complications. - Acute on chronic combined systolic and diastolic heart failure LVEF 20-25% BNP 3787 Chest x-ray showed cardiomegaly. Conitnue with iv lasix, BB, ACEI, Statin - Acute metabolic encephalopahty Likely ETOH withdrawal CIWA protocol - Likely ETOH withdrawal commence CIWA protocol with ativan - COPD exercebation with hypercapnea Chest x-ray remarkable for emphysema, cardiomegaly and mild congestion. Continue with Broanchodilator, supplemental oxygen, iv solumedrol and iv Levaquin Brovena Pulm. consult - Ascending Aorta aneurysm 4x3.9 cm Vascular surgical consult - PAD with no palpable DP pulse zhen and h/o Claudication Arterial doppler showed sever occlusive disease especially left Pop art. Vascular surgical consult obtained - Weight loss CT chest abdomen and pelvis - Thrombocytopenia - imporving commence Thiamine, folic acid, - Eosinophelia Unknown etiology, likely pulmonary f/u with CXR and CT chest - DVT PPx with lovenox and GI with pepcid CODE STATUS: Patient is full code. Time spent: 40 minutes. Subjective Date of service: 07/06/19 Principal diagnosis: COPD exacerbation, shortness of breath, hypoxia, PAD. Interval history: Very confused. Said to have attempted leaving the hospital yesterday. Sedated and asleep Objective - Exam Narrative Exam: Constitutional: Poorly nourished, Very confused and agitated Head: Normocephalic atraumatic Eyes: Pupils are equal round and reactive to light Nose: No enlarged turbinates, no septal deviation. Mouth: Moist mucous membranes. Neck: Supple no thyromegaly. No bruit. No JVD Heart: Regular rate and rhythm, S1-S2 normal. No rubs murmurs or gallop Lungs: Decreased air movement bilaterally with crackles on the left middle and lower lobes. Has inspiratory wheeze. Abdomen: Soft, nontender. Bowel sound are present. Extremities: No dizziness. No dorsalis pedis pulses felt on both lower extremities. No edema, no cyanosis, no clubbing. Neuro: Alert oriented Oriented x3. No focal sensory or motor deficit. Skin: No rashes or hyperpigmented spots Musculoskeletal system: No joint pain or swelling Hematological: No petechia or subcutanous hemorrhages. Immunological: No multiple septic spots on the skin Lymphatic: No generalized lymphadenopathy Psychiatry: Confused and agitated - Constitutional Vitals: Vital Signs - 12hr 07/05/19 07/05/19 07/05/19 21:02 21:10 21:54 Temperature Pulse Rate 104 H Pulse Rate [ 107 H Bilateral Throughout] Respiratory Rate Respiratory 20 Rate [Bilateral Throughout] Blood Pressure 106/55 O2 Sat by Pulse 97 Oximetry 07/06/19 07/06/19 07/06/19 01:57 05:11 05:12 Temperature 97.6 F Pulse Rate 99 H 99 H 99 H Pulse Rate [ Bilateral Throughout] Respiratory 16 Rate Respiratory Rate [Bilateral Throughout] Blood Pressure 117/67 117/67 117/67 O2 Sat by Pulse 92 Oximetry 07/06/19 07/06/19 06:55 07:43 Temperature 97.8 F Pulse Rate 88 90 Pulse Rate [ Bilateral Throughout] Respiratory 18 Rate Respiratory Rate [Bilateral Throughout] Blood Pressure 104/48 O2 Sat by Pulse 99 Oximetry - Labs CBC & Chem 7: 07/06/19 05:27 07/06/19 05:27 Labs: Abnormal lab results 07/05/19 07/05/19 07/05/19 Range/Units 04:07 09:24 11:48 MCV (84-94) fl RDW (13.2-15.2) % Lymph % (Auto) (13.4-35.0) % Lymph # (1.2-5.4) K/mm3 Seg Neutrophils % (40.0-70.0) % PT (12.2-14.9) Sec. Chloride (98-107) mmol/L Carbon Dioxide (22-30) mmol/L BUN (9-20) mg/dL Glucose (75-100) mg/dL POC Glucose 126 H 138 H (70-105) Magnesium 1.60 L (1.7-2.3) mg/dL Alkaline Phosphatase (35-129) units/L Albumin (3.9-5) g/dL 07/05/19 07/06/19 07/06/19 Range/Units 16:37 05:27 05:27 MCV 95 H (84-94) fl RDW 12.9 L (13.2-15.2) % Lymph % (Auto) 10.2 L (13.4-35.0) % Lymph # 0.6 L (1.2-5.4) K/mm3 Seg Neutrophils % 84.8 H (40.0-70.0) % PT (12.2-14.9) Sec. Chloride 94.0 L (98-107) mmol/L Carbon Dioxide 33 H (22-30) mmol/L BUN 31 H (9-20) mg/dL Glucose 130 H (75-100) mg/dL POC Glucose 137 H (70-105) Magnesium (1.7-2.3) mg/dL Alkaline Phosphatase 28 L (35-129) units/L Albumin 3.8 L (3.9-5) g/dL 07/06/19 07/06/19 Range/Units 05:27 05:27 MCV (84-94) fl RDW (13.2-15.2) % Lymph % (Auto) (13.4-35.0) % Lymph # (1.2-5.4) K/mm3 Seg Neutrophils % (40.0-70.0) % PT 12.0 L (12.2-14.9) Sec. Chloride (98-107) mmol/L Carbon Dioxide (22-30) mmol/L BUN (9-20) mg/dL Glucose (75-100) mg/dL POC Glucose 126 H (70-105) Magnesium (1.7-2.3) mg/dL Alkaline Phosphatase (35-129) units/L Albumin (3.9-5) g/dL
[2019-07-06] MEDS ORDERED: VERSED ONE (08:51)
[2019-07-06] MEDS ORDERED: SUBLIMAZE ONE (08:52)
[2019-07-06] MEDS ORDERED: HEPARIN 10,000 UNITS/10 ML ONE (08:52)
[2019-07-06] MEDS ORDERED: HEPARIN/NS 5000 UNIT/500ML(CATH LAB) 1,000 ML IR ONE (08:52)
[2019-07-06] MEDS ORDERED: NITROGLYCERIN SYRINGE 3 ML ONE (08:53)
[2019-07-06] MEDS ORDERED: XYLOCAINE 2% INFILTRATI ONE (08:53)
[2019-07-06] MEDS ORDERED: CALAN ONE (08:53)
--- NOTE | 2019-07-06 09:50 | Cardiac Catherization Report ---
REFERRING PHYSICIAN: Shemar Cohen MD. INDICATION FOR PROCEDURE: The patient is a 63-year-old [place]otian Croatian male presents with shortness of breath, fatigue, found to have an ejection fraction of 15-20%. He also was found to have severe diffuse peripheral vascular disease including aortic disease, iliac disease, and celiac disease. Given severe cardiomyopathy, he is referred for left heart catheterization. Risks, benefits, alternatives discussed via honing machine operator production and his daughter given language barrier. Risks, benefits, and alternatives discussed prior to obtaining informed consent. PROCEDURE IN DETAIL: The patient was brought to catheterization lab in a postabsorptive state, prepped and draped in sterile fashion. George's test in right hand was normal. A 2 mL of 2% lidocaine used to anesthetize the right wrist. A standard 6-[place] Island[place] hydrophilic sheath used to cannulate the right cannulate and right radial artery via modified Seldinger technique. All exchanges performed to exchange a J-tip guidewire. JL3.5 catheter used to engage the left main. No dampening or ventricularization. Cineangiography performed in all projections. JR4 catheter used to cross the aortic valve under fluoroscopic guidance. Left ventriculography was performed in 30 B[place] and 30 UZ[place] projections via hand injections, his catheter flushed. Manual pullback performed with continuous pressure monitoring. Catheter used to engage the right coronary. No dampening or ventricularization. Cineangiography performed in all projections. Next, significant peripheral vascular disease and calcification under fluoroscopy, I chose to proceed with a root aortogram with a pigtail catheter in the UZBEK projection with a power injector. Next, catheter removed from the body of wire, sheath removed. Manual pressure used to achieve hemostasis. No immediate complications. The patient tolerated the procedure well. I directly supervised the administration of moderate sedation from 9:05 a.m. to 9:25 a.m. DATA: Aortic pressure is 130/70. LV pressure is 130, LVP of 12 mmHg. Left ventriculography reveals severe global left ventricular hypokinesis, estimated ejection fraction of 15-20%. No evidence of aortic stenosis. Normal LVEDP, mild mitral regurgitation is identified. CORONARY ANATOMY: This is a right dominant system. Right coronary is a large vessel, courses AV groove, distally bifurcates in the posterior descending and posterolateral branches. There is a 30-40% proximal right coronary stenosis. Scattered luminal irregularities, otherwise no obstructive disease identified. It should be noted that the entire coronary tree is heavily calcified and evident on basic fluoroscopy. Left main without significant disease, bifurcates into left anterior descending and left circumflex. Left circumflex is a small vessel, courses AV groove. No significant disease. Left main is patent. LAD is a moderate sized vessel, courses anterior intergroove, wraps around the apex. There is a 30-40% mid LAD stenosis, but no obstructive disease identified. Of note, the heart is vertical in orientation likely consistent with chronic lung disease. Root aortography reveals normal contour, normal great vessel anatomy, no aortic insufficiency. No evidence of penetrating aortic ulcer, or dissection. The runoff reveals probable AAA, left iliac disease, but it is difficult to visualize. CONCLUSIONS: 1. Moderate nonobstructive coronary artery disease in this right dominant system, heavily calcified coronary tree. Recommend medical management. 2. Severe global left ventricular hypokinesis, estimated ejection fraction of 15-20%. 3. No evidence of aortic stenosis. 4. Normal LVEDP. 5. Root aortography without evidence of dissection, penetrating aortic ulcer, or aortic insufficiency, questionable abdominal aortic aneurysm and left iliac disease. These findings are consistent with a severe nonischemic cardiomyopathy, which is well compensated with ambient mild to moderate nonobstructive coronary artery disease. The etiology of his nonischemic cardiomyopathy may be alcohol abuse. Other severe vascular disease identified. Others severe vascular disease is known from recent workup. Vascular Surgery is following. At this point, we will continue to optimize medical therapy. Results of the procedure were explained at length to the patient via honing machine operator production and daughter. Continue to optimize medical therapy. Vascular Surgery involved. Smoking cessation discussed at length for over 5 minutes. We will follow closely along. Standard radial care. JOB# [id number] KOLTON/KENNEY RAMOS
[2019-07-06] MEDS ORDERED: LEVAQUIN PO SCH (10:00)
--- NOTE | 2019-07-06 10:09 | Progress Note ---
Assessment and Plan [facility] this AM which showed nonobstructive CAD, EF 15-20%. Cont ASA 81, statin, coreg, lisinopril. Convert IV lasix to PO 20mg daily. Chest CT reviewed - pt with aneurysms of the thoracic and abdominal aorta. BLE arterial duplex noted - pt with mod to severe disease in BLE. Vascular team is following. The patient has been seen in conjunction with Dr. Quin Montoya who agrees with the assessment and plan of care. - Patient Problems (1) Acute HFrEF (heart failure with reduced ejection fraction) Current Visit: Yes Status: Acute (2) Cardiomyopathy Current Visit: Yes Status: Chronic (3) COPD exacerbation Current Visit: Yes Status: Suspected (4) Tobacco use Current Visit: Yes Status: Chronic (5) Alcohol use Current Visit: Yes Status: Chronic (6) Acute pain of right lower extremity Current Visit: Yes Status: Acute (7) Nonobstructive atherosclerosis of coronary artery Current Visit: Yes Status: Chronic (8) AAA (abdominal aortic aneurysm) Current Visit: Yes Status: Chronic (9) PAD (peripheral artery disease) Current Visit: Yes Status: Chronic Subjective Date of service: 07/06/19 Principal diagnosis: COPD exacerbation, shortness of breath, hypoxia, PAD. Interval history: pt for [facility]. Objective Last Vital Signs Temp 97.8 F 07/06/19 07:43 Pulse 90 07/06/19 07:43 Resp 18 07/06/19 07:43 BP 104/48 07/06/19 07:43 Pulse Ox 99 07/06/19 07:43 - Physical Examination General: No Apparent Distress HEENT: Positive: PERRL, Normocephaly, Mucus Membranes Moist Neck: Positive: neck supple, trachea midline Cardiac: Positive: Reg Rate and Rhythm, S1/S2 Lungs: Positive: Decreased Breath Sounds Neuro: Positive: Grossly Intact Abdomen: Negative: Tender Skin: Negative: Rash, Wound Musculoskeletal: No Pain Extremities: Absent: edema - Labs and Meds Cardiac Enzymes 07/06/19 Range/Units 05:27 AST 26 (5-40) units/L Coagulation 07/06/19 Range/Units 05:27 PT 12.0 L (12.2-14.9) Sec. INR 0.91 (0.87-1.13) CBC 07/06/19 Range/Units 05:27 WBC 5.4 (4.5-11.0) K/mm3 RBC 4.10 (3.65-5.03) M/mm3 Hgb 13.0 (11.8-15.2) gm/dl Hct 38.9 (35.5-45.6) % Plt Count 142 (140-440) K/mm3 Lymph # 0.6 L (1.2-5.4) K/mm3 [place] # 0.3 (0.0-0.8) K/mm3 Eos # 0.0 (0.0-0.4) K/mm3 Baso # 0.0 (0.0-0.1) K/mm3 Comprehensive Metabolic Panel 07/06/19 Range/Units 05:27 Sodium 143 (137-145) mmol/L Potassium 3.8 (3.6-5.0) mmol/L Chloride 94.0 L (98-107) mmol/L Carbon Dioxide 33 H (22-30) mmol/L BUN 31 H (9-20) mg/dL Creatinine 1.3 (0.8-1.5) mg/dL Glucose 130 H (75-100) mg/dL Calcium 9.2 (8.4-10.2) mg/dL AST 26 (5-40) units/L ALT 7 (7-56) units/L Alkaline Phosphatase 28 L (35-129) units/L Total Protein 7.4 (6.3-8.2) g/dL Albumin 3.8 L (3.9-5) g/dL - Imaging and Cardiology EKG: report reviewed, image reviewed Echo: report reviewed (EF 20-25%, LV mildly dilated, mild LVH, impaired r elaxation, LA mildly dilated, mod AR and mild MR ) - Telemetry EKG Rhythm: Sinus Rhythm - EKG Sinus rhythms and dysrhythmias: sinus rhythm Chamber hypertrophy or enlargement: left ventricular hypertro
--- NOTE | 2019-07-06 12:05 | Progress Note ---
Subjective Date of service: 07/06/19 Principal diagnosis: COPD exacerbation, shortness of breath, hypoxia, PAD. Interval history: patient feels better today denies abdominal pain denies lower extremity rest pain patient says he can walk at least a block before pain starts CTA reviewed patient not to require surgical intervention during this hospitalization patient should be optimized medically with ASA, statin and smoking cessation will plan to flow patient as an outpatient with repeat CTA in 6 months patient also encouraged to improve nutritional status to improve his outcome when surgical intervention is necessary Objective - Constitutional Vitals: Vital Signs - 12hr 07/06/19 07/06/19 07/06/19 01:57 05:11 05:12 Temperature 97.6 F Pulse Rate 99 H 99 H 99 H Respiratory 16 Rate Blood Pressure 117/67 117/67 117/67 O2 Sat by Pulse 92 Oximetry 07/06/19 07/06/19 06:55 07:43 Temperature 97.8 F Pulse Rate 88 90 Respiratory 18 Rate Blood Pressure 104/48 O2 Sat by Pulse 99 Oximetry - Labs CBC & Chem 7: 07/06/19 05:27 07/06/19 05:27 Labs: Abnormal lab results 07/05/19 07/05/19 07/06/19 Range/Units 11:48 16:37 05:27 MCV 95 H (84-94) fl RDW 12.9 L (13.2-15.2) % Lymph % (Auto) 10.2 L (13.4-35.0) % Lymph # 0.6 L (1.2-5.4) K/mm3 Seg Neutrophils % 84.8 H (40.0-70.0) % PT (12.2-14.9) Sec. Chloride (98-107) mmol/L Carbon Dioxide (22-30) mmol/L BUN (9-20) mg/dL Glucose (75-100) mg/dL POC Glucose 138 H 137 H (70-105) Alkaline Phosphatase (35-129) units/L Albumin (3.9-5) g/dL 07/06/19 07/06/19 07/06/19 Range/Units 05:27 05:27 05:27 MCV (84-94) fl RDW (13.2-15.2) % Lymph % (Auto) (13.4-35.0) % Lymph # (1.2-5.4) K/mm3 Seg Neutrophils % (40.0-70.0) % PT 12.0 L (12.2-14.9) Sec. Chloride 94.0 L (98-107) mmol/L Carbon Dioxide 33 H (22-30) mmol/L BUN 31 H (9-20) mg/dL Glucose 130 H (75-100) mg/dL POC Glucose 126 H (70-105) Alkaline Phosphatase 28 L (35-129) units/L Albumin 3.8 L (3.9-5) g/dL 07/06/19 Range/Units 09:56 MCV (84-94) fl RDW (13.2-15.2) % Lymph % (Auto) (13.4-35.0) % Lymph # (1.2-5.4) K/mm3 Seg Neutrophils % (40.0-70.0) % PT (12.2-14.9) Sec. Chloride (98-107) mmol/L Carbon Dioxide (22-30) mmol/L BUN (9-20) mg/dL Glucose (75-100) mg/dL POC Glucose 129 H (70-105) Alkaline Phosphatase (35-129) units/L Albumin (3.9-5) g/dL Medications & Allergies - Medications Allergies/Adverse Reactions: Allergies No Known Allergies Allergy (Unverified 07/03/19 21:23) Home Medications: Home Medications Medication Instructions Recorded Confirmed Last Taken Type No Known Home Medications [No 07/04/19 07/04/19 Unknown History Reported Home Medications] Active Medications: Generic Name Dose Route Start Last Admin Trade Name Freq PRN Reason Stop Dose Admin Albuterol/Ipratropium 1 ampul 07/03/19 16:15 07/06/19 09:13 Duoneb *Not For Prn Use* IH Not Given Q6HRT [facility] Aspirin 81 mg 07/07/19 11:00 Baby Aspirin PO QDAY EDGARD Atorvastatin Calcium 40 mg 07/03/19 22:00 07/05/19 21:54 Lipitor PO 40 mg QHS EDGARD Administration Carvedilol 6.25 mg 07/03/19 22:00 07/06/19 05:11 Coreg PO 6.25 mg BID EDGARD Administration Enoxaparin Sodium 40 mg 07/03/19 22:00 07/05/19 21:54 Lovenox SUB-Q 40 mg QDAY@2200 EDGARD Administration Famotidine 20 mg 07/04/19 10:00 07/05/19 10:56 Pepcid IV 20 mg QDAY EDGARD Administration Furosemide 20 mg 07/07/19 11:00 Lasix PO QDAY EDGARD Sodium Chloride 1,000 mls @ 50 mls/hr 07/06/19 05:02 07/06/19 05:30 Nacl 0.9% 1000 Ml IV 50 mls/hr DIRECT EDGARD Administration Levofloxacin 750 mg 07/07/19 10:00 Levaquin PO Q48HR EDGARD Lisinopril 40 mg 07/03/19 22:00 07/06/19 05:12 Zestril PO 40 mg BID EDGARD Administration Lorazepam 1 mg 07/04/19 19:06 07/05/19 00:55 Ativan IV 1 mg Q12H PRN Administration Agitation Lorazepam 2 mg 07/05/19 13:49 Ativan IV Q1H PRN CIWA-Ar 8-15 Lorazepam 4 mg 07/05/19 13:49 Ativan IV Q1H PRN CIWA-Ar 16-25 Lorazepam 4 mg 07/05/19 13:49 Ativan IV Q15MIN PRN CIWA-Ar >25 Methylprednisolone Sodium Succinate 40 mg 07/03/19 22:00 07/06/19 05:11 Solu-Medrol IV 40 mg Q8HR EDGARD Administration
--- NOTE | 2019-07-06 15:10 | Vascular Lab Report ---
LOWER EXTREMITY SEGMENTAL ARTERIAL DOPPLER PRESSURE AND PVR STUDY HISTORY: Right leg pain COMPARISON: none TECHNIQUE: Lower extremity segmental arterial doppler pressure and PVR analysis were [facility] lower extremity levels bilaterally. FINDINGS: RIGHT: Brachial artery peak-systolic pressure: 93 mmHg Posterior tibialis: 33 mmHg Dorsalis pedis: 29 mmHg Great toe: 50 mmHg SARAH: 0.35 TBI: 0.54 LEFT: Brachial artery peak-systolic pressure: Unable to obtain due to IV placement. Posterior tibialis: 63 mmHg Dorsalis pedis: 52 mmHg Great toe: 80 mmHg SARAH: 0.68 TB I: 0.86 Additional findings: Pressure volume recordings demonstrate severe decreased flow to the right foot. IMPRESSION: Moderate to severe arterial occlusive disease in the right lower extremity as described. Signer Name: Bertram Min Jr, MD Signed: 07/06/2019 3:06 PM Workstation Name: [id number]
[2019-07-06] MEDS: PEPCID IV SCH (16:01)
[2019-07-06] MEDS: LOVENOX SUB-Q SCH (21:36)
[2019-07-07] MEDS: SOLU-Medrol IV SCH ×3 (05:40→21:32)
[2019-07-07 06:16] LABS: Basophils % (Auto) 0.1 % (0.0-1.8); Hematocrit 39.1 % (35.5-45.6); Hemoglobin 12.9 gm/dl (11.8-15.2); Lymphocytes # (Auto) 0.5 K/mm3 (1.2-5.4); Lymphocytes % (Auto) 7.3 % (13.4-35.0); Mean Corpuscular HGB Conc 33 % (32-34); Mean Corpuscular Volume 96 fl (84-94); Monocytes # (Auto) 0.2 K/mm3 (0.0-0.8); Monocytes % (Auto) 2.9 % (0.0-7.3); Platelet Count 131 K/mm3 (140-440); Red Blood Count 4.07 M/mm3 (3.65-5.03); Red Cell Distribution Width 12.7 % (13.2-15.2)
[2019-07-07 06:18] LABS: Albumin 3.5 g/dL (3.9-5); Calcium 8.8 mg/dL (8.4-10.2)
[2019-07-07] MEDS: DUONEB *Not for PRN Use IH SCH ×4 (06:55→21:40)
[2019-07-07] MEDS: NACL 0.9% 1000 ML 1,000 ML IV SCH (07:39)
[2019-07-07] MEDS: LASIX IV SCH (08:21)
[2019-07-07] MEDS: ASPIRIN PO SCH (08:21)
--- NOTE | 2019-07-07 08:36 | Progress Note ---
Assessment and Plan Patient is a 63 year old male who has a history of pneumonia, admitted at [facility] in 10/2016 presented to my office in company of her daughter complaining of progressive shortness of breath for 2 weeks, weight loss, and right lower extremity pain on ambulation. Shortness of breath is worse on slight exertion. Denies any chest pain no orthopnea or paroxysmal nocturnal dyspnea. He is a current smoker. Smokes 3 cigarettes a day. Denies any fever. No chills. Admits to appreciably increased amount of alcohol ingestion. Jessica ent stated that he has been losing weight for the past 2 years. Lost a total of 50 pounds. Denies any night sweats. No hemoptysis. On admission to my office patient was found to be tachycardic with O2 sat on room air of 88%. Had crackles in the left lower lobe. Had mild to moderate respiratory distress. Direct admission was therefore ordered. CTA of abdomen 1. No acute abnormality of the abdomen or pelvis. 2. Aneurysms of the thoracic and abdominal aorta as above without associated acute complications. - Acute on chronic combined systolic and diastolic heart failure LVEF 20-25% BNP [facility] showed nonobstructing CAD Conitnue with ASA, lasix, BB, ACEI, Statin - Acute metabolic encephalopahty - improving Likely ETOH withdrawal CIWA protocol - Likely ETOH withdrawal commence CIWA protocol with ativan - COPD exercebation with hypercapnea Chest x-ray remarkable for emphysema, cardiomegaly and mild congestion. Continue with Broanchodilator, supplemental oxygen, iv solumedrol and iv Levaquin Brovena Pulm. consult - Ascending Aorta aneurysm 4x3.9 cm Vascular surgical consult - PAD with no palpable DP pulse zhen and h/o Claudication Arterial doppler showed sever occlusive disease especially left Pop art. Vascular surgical consult obtained - Weight loss CT chest abdomen and pelvis - Thrombocytopenia - imporving commence Thiamine, folic acid, - Eosinophelia - corrected Unknown etiology, likely pulmonary f/u with CXR and CT chest Hyperglycemia Obtain A1c - DVT PPx with lovenox and GI with pepcid CODE STATUS: Patient is full code. Time spent: 40 minutes. Subjective Date of service: 07/07/19 Principal diagnosis: COPD exacerbation, shortness of breath, hypoxia, PAD. Interval history: Less confused. More alert Objective - Exam Narrative Exam: Constitutional: Poorly nourished, less confused Head: Normocephalic atraumatic Eyes: Pupils are equal round and reactive to light Nose: No enlarged turbinates, no septal deviation. Mouth: Moist mucous membranes. Neck: Supple no thyromegaly. No bruit. No JVD Heart: Regular rate and rhythm, S1-S2 normal. No rubs murmurs or gallop Lungs: Decreased air movement bilaterally with crackles on the left middle and lower lobes. Has inspiratory wheeze. Abdomen: Soft, nontender. Bowel sound are present. Extremities: No dizziness. No dorsalis pedis pulses felt on both lower extrem ities. No edema, no cyanosis, no clubbing. Neuro: Alert oriented Oriented x3. No focal sensory or motor deficit. Skin: No rashes or hyperpigmented spots Musculoskeletal system: No joint pain or swelling Hematological: No petechia or subcutanous hemorrhages. Immunological: No multiple septic spots on the skin Lymphatic: No generalized lymphadenopathy Psychiatry: Confused and agitated - Constitutional Vitals: Vital Signs - 12hr 07/06/19 07/06/19 07/06/19 20:47 21:37 21:53 Temperature Pulse Rate 91 H 91 H Pulse Rate [ Bilateral Throughout] Respiratory Rate Respiratory Rate [Bilateral Throughout] Blood Pressure 114/55 114/55 O2 Sat by Pulse 99 Oximetry 07/07/19 07/07/19 07/07/19 02:20 02:44 07:19 Temperature 98.6 F 97.7 F Pulse Rate 87 86 Pulse Rate [ Bilateral Throughout] Respiratory 18 18 Rate Respiratory Rate [Bilateral Throughout] Blood Pressure 107/62 115/68 O2 Sat by Pulse 95 Oximetry 07/07/19 07/07/19 07:42 07:55 Temperature Pulse Rate Pulse Rate [ 86 Bilateral Throughout] Respiratory Rate Respiratory 14 Rate [Bilateral Throughout] Blood Pressure O2 Sat by Pulse 97 Oximetry - Labs CBC & Chem 7: 07/07/19 05:30 07/07/19 05:30 Labs: Abnormal lab results 07/06/19 07/06/19 07/07/19 Range/Units 09:56 21:57 05:30 MCV 96 H (84-94) fl RDW 12.7 L (13.2-15.2) % Plt Count 131 L (140-440) K/mm3 Lymph % (Auto) 7.3 L (13.4-35.0) % Lymph # 0.5 L (1.2-5.4) K/mm3 Seg Neutrophils % 89.7 H (40.0-70.0) % Carbon Dioxide (22-30) mmol/L BUN (9-20) mg/dL Glucose (75-100) mg/dL POC Glucose 129 H 280 H (70-105) Alkaline Phosphatase (35-129) units/L Albumin (3.9-5) g/dL 07/07/19 07/07/19 Range/Units 05:30 06:44 MCV (84-94) fl RDW (13.2-15.2) % Plt Count (140-440) K/mm3 Lymph % (Auto) (13.4-35.0) % Lymph # (1.2-5.4) K/mm3 Seg Neutrophils % (40.0-70.0) % Carbon Dioxide 34 H (22-30) mmol/L BUN 38 H (9-20) mg/dL Glucose 137 H (75-100) mg/dL POC Glucose 123 H (70-105) Alkaline Phosphatase 28 L (35-129) units/L Albumin 3.5 L (3.9-5) g/dL
[2019-07-07] MEDS: ZESTRIL PO SCH ×2 (09:32→21:31)
[2019-07-07] MEDS: COREG PO SCH ×2 (09:32→21:31)
[2019-07-07] MEDS: PEPCID IV SCH (09:32)
[2019-07-07] MEDS ORDERED: LEVAQUIN PO SCH (10:00)
--- NOTE | 2019-07-07 10:18 | Progress Note ---
Assessment and Plan The patient's cardiac status is stable. Continue current management. Creatinine noted to be elevated - will monitor; recommend nephrology consultation if it worsens. The patient has been seen in conjunction with Dr. Pugh, who agrees with the assessment and plan. - Patient Problems (1) Acute HFrEF (heart failure with reduced ejection fraction) Current Visit: Yes Status: Acute (2) Acute pain of right lower extremity Current Visit: Yes Status: Acute (3) AAA (abdominal aortic aneurysm) Current Visit: Yes Status: Chronic (4) Alcohol use Current Visit: Yes Status: Chronic (5) Cardiomyopathy Current Visit: Yes Status: Chronic (6) Nonobstructive atherosclerosis of coronary artery Current Visit: Yes Status: Chronic (7) PAD (peripheral artery disease) Current Visit: Yes Status: Chronic (8) Tobacco use Current Visit: Yes Status: Chronic (9) COPD exacerbation Current Visit: Yes Status: Suspected Subjective Date of service: 07/07/19 Principal diagnosis: COPD exacerbation, shortness of breath, hypoxia, PAD. Interval history: Patient is resting comfortably in bed. He has no complaints. Telemetry reviewed - SR in 80s with ST-segment depression noted. Cr elevated to 1.5 this morning. Objective Last Vital Signs Temp 97.7 F 07/07/19 07:19 Pulse 86 07/07/19 07:42 Resp 14 07/07/19 07:42 BP 115/68 07/07/19 07:19 Pulse Ox 96 07/07/19 07:55 Vital Signs - Physical Examination General: No Apparent Distress HEENT: Positive: PERRL, Normocephaly, Mucus Membranes Moist Neck: Positive: neck supple, trachea midline Cardiac: Positive: Reg Rate and Rhythm Lungs: Positive: Normal Exam Neuro: Positive: Grossly Intact Abdomen: Positive: Unremarkable. Negative: Tender /Rectal: Other (deferred) Skin: Negative: Rash, Wound Musculoskeletal: No Pain Extremities: Present: normal. Absent: edema - Labs and Meds Cardiac Enzymes 07/07/19 Range/Units 05:30 AST 24 (5-40) units/L CBC 07/07/19 Range/Units 05:30 WBC 6.4 (4.5-11.0) K/mm3 RBC 4.07 (3.65-5.03) M/mm3 Hgb 12.9 (11.8-15.2) gm/dl Hct 39.1 (35.5-45.6) % Plt Count 131 L (140-440) K/mm3 Lymph # 0.5 L (1.2-5.4) K/mm3 [place] # 0.2 (0.0-0.8) K/mm3 Eos # 0.0 (0.0-0.4) K/mm3 Baso # 0.0 (0.0-0.1) K/mm3 Comprehensive Metabolic Panel 07/07/19 Range/Units 05:30 Sodium 143 (137-145) mmol/L Potassium 4.9 D (3.6-5.0) mmol/L Chloride 100.2 (98-107) mmol/L Carbon Dioxide 34 H (22-30) mmol/L BUN 38 H (9-20) mg/dL Creatinine 1.5 (0.8-1.5) mg/dL Glucose 137 H (75-100) mg/dL Calcium 8.8 (8.4-10.2) mg/dL AST 24 (5-40) units/L ALT 9 (7-56) units/L Alkaline Phosphatase 28 L (35-129) units/L Total Protein 6.8 (6.3-8.2) g/dL Albumin 3.5 L (3.9-5) g/dL - Imaging and Cardiology EKG: report reviewed, image reviewed Echo: report reviewed (EF 20-25%, LV mildly dilated, mild LVH, impaired relaxation, LA mildly dilated, mod AR and mild MR ) - Telemetry EKG Rhythm: Sinus Rhythm - EKG Sinus rhythms and dysrhythmias: sinus rhythm Chamber hypertrophy or enlargement: left ventricular hypertro
[2019-07-07] MEDS: LASIX PO SCH (13:00)
[2019-07-07] MEDS: BABY ASPIRIN PO SCH (13:01)
[2019-07-07] MEDS: LOVENOX SUB-Q SCH (21:33)
[2019-07-08] MEDS: NACL 0.9% 1000 ML 1,000 ML IV SCH (02:11)
[2019-07-08] MEDS: SOLU-Medrol IV SCH (05:42)
[2019-07-08 09:00] VITALS: BP 104/54
[2019-07-08] MEDS: LASIX PO SCH (09:40)
[2019-07-08] MEDS: ZESTRIL PO SCH (09:40)
[2019-07-08] MEDS: PEPCID IV SCH (09:40)
[2019-07-08] MEDS: COREG PO SCH (09:40)
[2019-07-08] MEDS: BABY ASPIRIN PO SCH (09:40)
[2019-07-08 10:24] LABS: BUN/Creatinine Ratio 30; Blood Urea Nitrogen 30 mg/dL (9-20); Calcium 8.2 mg/dL (8.4-10.2); Hemolysis Index 16
--- NOTE | 2019-07-08 10:35 | Progress Note ---
Assessment and Plan The patient's cardiac status is stable. Renal function appears normalized. He is stable for discharge from our standpoint. Continue current cardiac management at discharge. Follow up with Dr. Quin Montoya in 7-10 days. Call for an appointment. The patient has been seen in conjunction with Dr. Pugh, who agrees with the as sessment and plan. - Patient Problems (1) Acute HFrEF (heart failure with reduced ejection fraction) Current Visit: Yes Status: Acute (2) Acute pain of right lower extremity Current Visit: Yes Status: Acute (3) AAA (abdominal aortic aneurysm) Current Visit: Yes Status: Chronic (4) Alcohol use Current Visit: Yes Status: Chronic (5) Cardiomyopathy Current Visit: Yes Status: Chronic (6) Nonobstructive atherosclerosis of coronary artery Current Visit: Yes Status: Chronic (7) PAD (peripheral artery disease) Current Visit: Yes Status: Chronic (8) Tobacco use Current Visit: Yes Status: Chronic (9) COPD exacerbation Current Visit: Yes Status: Suspected Subjective Date of service: 07/08/19 Principal diagnosis: COPD exacerbation, shortness of breath, hypoxia, PAD. Interval history: The patient is lying in bed in NAD. Per daughter at bedside, patient denies CP and SOB. Telemetry reviewed - SR in 80s with ST-segment depression. Objective Last Vital Signs Temp 97.3 F L 07/08/19 07:12 Pulse 83 07/08/19 07:12 Resp 18 07/08/19 07:12 BP 104/54 07/08/19 07:12 Pulse Ox 97 07/08/19 07:18 - Physical Examination General: No Apparent Distress HEENT: Positive: PERRL, Normocephaly, Mucus Membranes Moist Neck: Positive: neck supple, trachea midline Cardiac: Positive: Reg Rate and Rhythm Lungs: Positive: Normal Exam Neuro: Positive: Grossly Intact Abdomen: Positive: Unremarkable. Negative: Tender /Rectal: Other (deferred) Skin: Negative: Rash, Wound Musculoskeletal: No Pain Extremities: Present: normal, lower extr. pulses (weak ). Absent: edema - Labs and Meds Comprehensive Metabolic Panel 07/08/19 Range/Units 09:44 Sodium 139 (137-145) mmol/L Chloride 97.4 L (98-107) mmol/L Carbon Dioxide 32 H (22-30) mmol/L BUN 30 H (9-20) mg/dL Creatinine 1.0 (0.8-1.5) mg/dL Glucose 205 H (75-100) mg/dL Calcium 8.2 L (8.4-10.2) mg/dL - Imaging and Cardiology EKG: report reviewed, image reviewed Echo: report reviewed (EF 20-25%, LV mildly dilated, mild LVH, impaired relaxation, LA mildly dilated, mod AR and mild MR ) - Telemetry EKG Rhythm: Sinus Rhythm - EKG Sinus rhythms and dysrhythmias: sinus rhythm Chamber hypertrophy or enlargement: left ventricular hypertro
--- NOTE | 2019-07-08 13:45 | Discharge Summary ---
Providers - Providers Date of Admission: 07/03/19 15:53 Date of discharge: 07/08/19 Attending physician: CHRIS HAWKINS 07/05/19 09:44 Consult to Physician [CONS] Routine Comment: Consulting Provider: MIR GRACIA Physician Instructions: Reason For Exam: sever PAD with claudication 07/06/19 10:04 Consult to Cardiac Rehabilitation [CONS] Routine Reason For Exam: Cardiac Rehab Evaluation Primary care physician: CHRIS HAWKINS Hospitalization Reason for admission: acute of chronic systolic heart failure Pertinent studies: Chest x-ray, echocardiogram, CT scan of the abdomen and pelvis, CT scan of the chest. Procedures: none Hospital course: Patient is a 63 year old male who has a history of pneumonia, admitted at [facility] in 10/2016 presented to my office in company of her daughter complaining of progressive shortness of breath for 2 weeks, weight loss, and rig ht lower extremity pain on ambulation. Shortness of breath is worse on slight exertion. Denies any chest pain no orthopnea or paroxysmal nocturnal dyspnea. He is a current smoker. Smokes 3 cigarettes a day. Denies any fever. No chills. Admits to appreciably increased amount of alcohol ingestion. Patient stated that he has been losing weight for the past 2 years. Lost a total of 50 pounds. Denies any night sweats. No hemoptysis. On admission to my office patient was found to be tachycardic with O2 sat on room air of 88%. Had crackles in the left lower lobe. Had mild to moderate respiratory distress. Direct admission was therefore ordered. Chest x-ray showed a venous EMPHYSEMA. CT scan of the lungs showed aneurysm of the ascending doctor as well as that of the descending the infrarenal portion. Past surgical consult was obtained. On bronchodilators, IV Solu-Medrol and IV Levaquin. Echocardiogram was done. Ejection pressure was 22 and 5%. Patient was commenced on beta blockers 80s prior lab computer, the consult was obtained. Cardiac was done. No appreciable coronary artery disease was identified. Cardiomyopathy was diagnosed. Patient has a history of alcohol abuse. Went into alteration in his mental status with acute delirium. Continue with Ativan. Improved. Therefore he is discharged today to follow up with primary care physician foreign service officer. Had progressive pain and is improving thiamine. Eosinophilia on admission also improve Disposition: [id number] TO HOME OR SELFCARE Time spent for discharge: 40 min - Discharge Diagnoses (1) Acute HFrEF (heart failure with reduced ejection fraction) Status: Acute (2) Acute pain of right lower extremity Status: Acute (3) AAA (abdominal aortic aneurysm) Status: Chronic (4) Alcohol use Status: Chronic (5) Cardiomyopathy Status: Chronic (6) Nonobstructive atherosclerosis of coronary artery Status: Chronic (7) PAD (peripheral artery disease) Status: Chronic (8) Tobacco use Status: Chronic Core Measure Documentation - Palliative Care Palliative Care/ Comfort Measures: Not Applicable - Core Measures Any of the following diagnoses?: heart failure - Heart Failure Discharge Requirements GARRET/ARB for LVSD if EF <40%: Yes Beta dilcia at discharge: Yes Reason for no beta dilcia on DC: Allergy or sensitivity Exam - Physical Exam Narrative exam: Constitutional: Poorly nourished, well oriented Head: Normocephalic atraumatic Eyes: Pupils are equal round and reactive to light Nose: No enlarged turbinates, no septal deviation. Mouth: Moist mucous membranes. Neck: Supple no thyromegaly. No bruit. No JVD Heart: Regular rate and rhythm, S1-S2 normal. No rubs murmurs or gallop Lungs: Decreased air movement bilaterally with crackles on the left middle and lower lobes. Has inspiratory wheeze. Abdomen: Soft, nontender. Bowel sound are present. Extremities: No dizziness. No dorsalis pedis pulses felt on both lower extremities. No edema, no cyanosis, no clubbing. Neuro: Alert oriented Oriented x3. No focal sensory or motor deficit. Skin: No rashes or hyperpigmented spots Musculoskeletal system: No joint pain or swelling Hematological: No petechia or subcutanous hemorrhages. Immunological: No multiple septic spots on the skin Lymphatic: No generalized lymphadenopathy Psychiatry: well oreinted - Constitutional Vitals: Temp Pulse Resp BP Pulse Ox 97.3 F L 83 18 104/54 97 07/08/19 07:12 07/08/19 07:12 07/08/19 07:12 07/08/19 07:12 07/08/19 07:18 Plan Activity: fall precautions Weight Bearing Status: Non-Weight Bearing Diet: regular Follow up with: CHRIS HAWKINS MD [Primary Care Provider] - 7 Days MIR GRACIA MD [Staff Physician] - 14 Days Prescriptions: Aspirin [Aspirin BABY CHEW TAB] 81 mg PO QDAY #30 tab.chew Carvedilol [Coreg] 6.25 mg PO BID #60 tablet Ipratropium/Albuterol Sulfate [DUONEB *Not for PRN Use*] 1 ampul IH TIDRT #100 ampul.neb Furosemide [Lasix TAB] 20 mg PO QDAY #30 tablet AtorvaSTATin [Lipitor] 40 mg PO QHS #30 tablet Prednisone [predniSONE 10 mg (6-Day Pack, 21 Tabs)] 10 mg PO .TAPER #1 tab.ds.pk Lisinopril [Zestril TAB] 40 mg PO QDAY #30 tablet
== END 2019-07-08 14:37 | disposition home or self-care (01) | DRG 286 ==
LOC: 3A 13:34 → UNDOADMIN 13:34 → EDSEX 15:53 → 2B-ACE 15:53
PROVIDERS: ADMIT Family Medicine; ATTEND Family Medicine
PROC: 4A033R1 Measurement of Arterial Saturation, Peripheral, Percutaneous Approach (ICD-10-PCS; 2019-07-03)
PROC: 4A023N7 Measurement of Cardiac Sampling and Pressure, Left Heart, Percutaneous Approach (ICD-10-PCS; principal; 2019-07-06)
PROC: B2111ZZ Fluoroscopy of Multiple Coronary Arteries using Low Osmolar Contrast (ICD-10-PCS; 2019-07-06)
PROC: B2151ZZ Fluoroscopy of Left Heart using Low Osmolar Contrast (ICD-10-PCS; 2019-07-06)
PROC: B3101ZZ Fluoroscopy of Thoracic Aorta using Low Osmolar Contrast (ICD-10-PCS; 2019-07-06)
DX: I11.0 Hypertensive heart disease with heart failure (principal); G93.41 Metabolic encephalopathy; J44.1 Chronic obstructive pulmonary disease with (acute) exacerbation; I50.43 Acute on chronic combined systolic (congestive) and diastolic (congestive) heart failure; I42.9 Cardiomyopathy, unspecified; F10.10 Alcohol abuse, uncomplicated; Y90.9 Presence of alcohol in blood, level not specified; F17.210 Nicotine dependence, cigarettes, uncomplicated; D69.6 Thrombocytopenia, unspecified; I71.4 Abdominal aortic aneurysm, without rupture; D72.1 Eosinophilia; I73.9 Peripheral vascular disease, unspecified; R73.9 Hyperglycemia, unspecified; I25.10 Atherosclerotic heart disease of native coronary artery without angina pectoris; Z87.01 Personal history of pneumonia (recurrent); Z71.6 Tobacco abuse counseling
CPT/HCPCS: 36415; 36600; 71045; 71260; 74177; 75635; 80048; 80053; 82140; 82803; 82962; 83036; 83735; 83880; 84100; 84484; 85025; 85610; 85730; 86850; 86900; 86901; 87040; 93005; 93010; 93306; 93458; 93567; 93922; 93925; 94640; 94760; 99406; G0378; A9270-GY; C1894; J1644; J1650; J1940; J1956; J2060; J2250; J2920; J3010; J7030; J7040; Q9967